=== PATIENT | female | born 1970 | race African-American/Black ===

== ENCOUNTER 2021-02-01 20:34 | Emergency (ER) | payer OTHER ==
[2021-02-01] MEDS ORDERED: Morphine 4 MG/ML VIAL ONE (20:46)
[2021-02-01] MEDS ORDERED: Morphine 2 MG/ML VIAL ONE (20:46)
[2021-02-01] MEDS ORDERED: Ketorolac Tromethamine 30 MG/ML VIAL ONE (21:38)
[2021-02-01] MEDS ORDERED: Cyclobenzaprine 10 MG TAB ONE (21:40)
== END 2021-02-01 22:05 | disposition home or self-care (01) ==
LOC: MADERS 20:34
DX: S33.5XXA Sprain of ligaments of lumbar spine, initial encounter (principal); S20.20XA Contusion of thorax, unspecified, initial encounter; E66.9 Obesity, unspecified; W22.8XXA Striking against or struck by other objects, initial encounter
CPT/HCPCS: 70450; 72125; 72128; 72131; 96374; 96375; J1885; J2270